=== PATIENT | male | born 1985 ===

== ENCOUNTER 2025-04-14 11:28 | Day surgery (SDC) | payer BC ==
[2025-04-14 08:07] LABS: Absolute Lymphocytes (CBC) 1.8 K/uL (0.7-4.9); Hematocrit 43.5 % (39.6-49.0); Hemoglobin 15.5 g/dL (13.6-17.9); MCH 29.7 pg (27.0-35.0); MCHC 35.7 g/dL (32.0-36.0); MCV 83.2 fL (80-100); MPV 6.8 fL (7.6-11.3); Nucleated RBC Absolute Count 0.0 (0-0); Nucleated Red Blood Cells % 0.1 % (0-0); RBC Red Blood Cell Count 5.23 M/uL (4.33-5.43); White Blood Count 5.00 thou/uL (4.3-10.9)
[2025-04-14 08:24] LABS: Anion Gap 8.2 mEq/L (5.0-15.0); BUN Blood Urea Nitrogen 10.0 mg/dL (7-18); Glucose Level 106.0 mg/dL (74-106); Potassium 4.2 mEq/L (3.5-5.1)
[2025-04-14] MEDS: Ringers Lactate 1,000 ML IV ONE (11:45)
[2025-04-14] MEDS ORDERED: LIDOCAINE 1% MPF 5 ML VIAL ONE (12:32)
[2025-04-14] MEDS ORDERED: EPINEPHRINE 1 MG/ML VIAL ONE (13:01)
[2025-04-14 14:02] VITALS: O2SAT 98
[2025-04-14 14:23] VITALS: BP 120/67; TEMP 97.3
== END 2025-04-14 14:10 | disposition home or self-care (01) ==
LOC: OR 11:28
PROVIDERS: ATTEND Surgery
PROC: 0DJD8ZZ Inspection of Lower Intestinal Tract, Via Natural or Artificial Opening Endoscopic (ICD-10-PCS; principal; 2025-04-14 13:00)
DX: K92.1 Melena (principal); R19.4 Change in bowel habit; K26.5 Chronic or unspecified duodenal ulcer with perforation; K64.8 Other hemorrhoids; K64.4 Residual hemorrhoidal skin tags
CPT/HCPCS: 85025; 80048; 36415; 45378; J2704 ×2; J2003; J7120; J0171